=== PATIENT | female | born 1970 | race Caucasian/White ===

== ENCOUNTER → 2024-11-25 | Outpatient (REF) | payer BC | LOC: M LAB REF 20:04 | PROVIDERS: ATTEND Physician Assistant | DX: N94.89 Other specified conditions associated with female genital organs and menstrual cycle (principal) ==

== ENCOUNTER 2025-03-30 11:56 | Emergency (ER) | payer BC ==
[~2025-03-30] VITALS: Ht 154.9 cm; Wt 67.0 kg
[2025-03-30] MEDS ORDERED: DULO-34 (12:14)
[2025-03-30] MEDS ORDERED: COLA100C5 PO (16:16)
[2025-03-30 16:23] VITALS: BP 157/80; TEMP 98.7; O2SAT 99
== END 2025-03-30 16:26 | disposition home or self-care (01) ==
LOC: M ED 11:56
DX: K59.00 Constipation, unspecified (principal); F32.A Depression, unspecified; Z91.013 Allergy to seafood; Z79.899 Other long term (current) drug therapy

== ENCOUNTER → 2025-04-15 | Outpatient (REF) | payer BC ==
[~2025-04-15] MED LIST: COLA100C5 PO; DULO-34
[2025-04-15 16:36] LABS: RSV AMPLIFICATION NEGATIVE (NEGATIVE)
== END ==
LOC: M LAB REF 15:40
PROVIDERS: ATTEND Physician Assistant Medical
DX: B34.9 Viral infection, unspecified (principal)